=== PATIENT | female | born 1960 | race Caucasian/White ===

== ENCOUNTER 2024-11-16 11:36 | Emergency (ER) | payer SELFPAY ==
--- NOTE | ~2024-11-16 | XR_ITS ---
EXAMINATION: XR soft tissue neck DATE: 11/16/2024 12:08 INDICATION: Possible metal foreign body in the throat. TECHNIQUE: AP and lateral views of the soft tissues of the neck were obtained. COMPARISON: None. FINDINGS: No metallic foreign bodies evident the soft tissues of the neck. Prevertebral soft tissues and epiglo ttis are normal. Airway is widely patent throughout. Tiny atherosclerotic calcification at the left n malini projecting lateral to the lower cervical spine. Mild to moderate lower cervical predominant spond ylosis. Visualized apices of lungs are clear. IMPRESSION: 1. No metallic foreign bodies. 2. Mild to moderate lower cervical predominant spondylosis. Reviewed, dictated and finalized at location A.
[2024-11-16 11:38] VITALS: BP 152/80; PULSE 68; RESP 20; TEMP 36.6; O2SAT 99
--- NOTE | 2024-11-16 11:44 | ED.URI ---
HPI - URI/Sore Throat General Chief Complaint: Upper Respiratory Infection Stated Complaint: fb on tonsil Time Seen by Provider: 11/16/24 11:40 Source: patient Mode of arrival: ambulatory Limitations: no limitations History of Present Illness HPI Narrative: Peri is a 64-year-old female patient presenting to the clinic today with complaints of possible metal foreign body in her throat. She reports she was taking of drink out of a cup that had a small piece of a metal brillo pad in it. This occurred that night. Was able to remove one piece of it but feels as though there still may be a piece in the back of her throat. Denies any trouble swallowing, difficulty breathing, or drooling. Related Data Home Medications ?Medication ?Instructions ?Recorded ?Confirmed ?Last Taken ?Type No Home Medications 11/16/24 Unknown History Allergies Allergy/AdvReac Type Severity Reaction Status Date / Time nickel Allergy Unknown Unknown Verified 11/16/24 11:47 Review of Systems Review of Systems: Pertinent positives per HPI. Patient denies any fever, chills, rash, headache, visual changes, dizziness, cough, shortness of breath, chest pain, palpitations, nausea, vomiting, diarrhea, constipation, abdominal pain, or any urinary issues. PMFSH Comments At the time of my signature, I reviewed and agree with the nursing past medical, surgical, social, and family history. There is no relevant family history pertinent to the patient complaint. Exam Narrative: General: Well-developed, well nourished, in no apparent distress Head: Normocephalic, atraumatic Eyes: Pupils equally round and reactive to light bilaterally, EOM intact, sclera and conjunctive clear, no discharge, lids normal Ears: TMs intact and clear, ear canals clear, no drainage, grossly hearing normal. Nose: Nares patent, no discharge, no inflammation, no sinus tenderness. Mouth: Oral pharynx without lesions or masses, good dentition, MMM. Postnasal drip Neck: Supple, trachea midline, no enlargement of anterior or posterior cervical nodes, no thyroid masses or goiter palpable. Cardio: Regular rate and rhythm, s1 and s2 normal, no murmur appreciated. Resp: Clear to auscultation bilaterally, no rhonchi, rales, wheezing or rubs Course Course Emergency Course: Portions of this record may have been created with voice recognition software. Level of Care: Express Care Visit Vital Signs Vital signs: Vital Signs Temperature 36.6 C 11/16/24 11:38 Pulse Rate 68 11/16/24 11:38 Respiratory Rate 20 11/16/24 11:38 Blood Pressure 152/80 H 11/16/24 11:38 Pulse Oximetry 99 11/16/24 11:38 Oxygen Delivery Room Air 11/16/24 11:38 Temperature 36.6 C 11/16/24 11:38 Pulse Rate 68 11/16/24 11:38 Respiratory Rate 20 11/16/24 11:38 Blood Pressure 152/80 H 11/16/24 11:38 Pulse Oximetry 99 11/16/24 11:38 Oxygen Delivery Room Air 11/16/24 11:38 Vital signs reviewed MDM - URI/Sore Throat MDM Narrative Medical decision making narrative: At the time of visit patient is resting comfortably on the exam table. Patient appears to be nontoxic. complaints of possible metal foreign body in her throat. She reports she was taking of drink out of a cup that had a small piece of a metal brillo pad in it. This occurred that night. Was able to remove one piece of it but feels as though there still may be a piece in the back of her throat. Denies any trouble swallowing, difficulty breathing, or drooling. On exam no obvious foreign body was visualized. Patient does have postnasal drip. X-ray soft tissue neck ordered. Patient not wanting to wait for x-rays to be read. Explained to the patient that this she only had 2 radiology readings ahead of her and that it should be rather quick for the reading. After waiting approximately 10 minutes patient eloped- did not let any staff know that she was leaving. Diagnostics: X-ray of the soft tissue neck performed and shows negative for any foreign body. Plan: I suspect patient has sensation of foreign body in the throat. On x-ray there was no sign of metal foreign body. Patient eloped after x-ray completed- did not want to wait and did not tell anyone that she was leaving the facility. No discharge instructions were given. Differential Diagnosis Differential diagnosis: Likely other (Globus sensation, foreign body in throat, oropharynx tear/injury) Imaging Data Radiologist's impression: ITS Impressions Soft Tissue Neck X-Ray 11/16/24 12:23 IMPRESSION: 1. No metallic foreign bodies. 2. Mild to moderate lower cervical predominant spondylosis. Discharge Plan Discharge Clinical Impression: Sensation of foreign body in throat Patient Disposition: Elopement After Seen by Prov Patient Language: [place] Prescriptions: No Action No Home Medications Follow-up/Referrals: [facility]YSIC[facility] [Primary Care Provider] - Time of Disposition: 12:25 Quality NIHSS Nursing Documentation ED NIHSS nursing documentation: reviewed/agree
== END 2024-11-16 12:25 | disposition left against medical advice (07) ==
PROVIDERS: Emergency Provider Nurse Practitioner Family
DX: R09.A2 Foreign body sensation, throat (principal)
CPT/HCPCS: 70360; 99203; G0463